=== PATIENT | female | born 2000 | race Caucasian/White ===

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

== ENCOUNTER → 2022-04-12 | Outpatient (CLI) | payer OTHER ==
--- NOTE | 2022-04-12 14:10 | CT ---
EXAMINATION TYPE: CT abdomen pelvis w con DATE OF EXAM: 04/12/2022 HISTORY: Constipation and llq pain CT DLP: 769mGycm Automated Exposure Control for Dose Reduction was Utilized. CONTRAST: CT scan of the abdomen and pelvis is performed without oral but with IV Contrast, patient injected wi th 70 ml mL of Isovue 370. COMPARISON: None. FINDINGS: LUNG BASES: No significant abnormality is appreciated. LIVER/GB: Subcentimeter low dense lesion right hepatic lobe axial image 27 is too small to further ch aracterize but presumed benign. PANCREAS: No significant abnormality is seen. SPLEEN: No significant abnormality is seen. ADRENALS: No significant abnormality is seen. KIDNEYS: Symmetric cortical medullary uptake and excretion without hydronephrosis seen bilaterally. BOWEL: Patient has little intra-abdominal fat making evaluation slightly suboptimal. No suspicious sm all or large bowel dilatation is seen. Low-lying cecum into the right pelvis is noted. [id number] te fecal prominence in the rectosigmoid colon UTERUS/ADNEXA: Anteverted uterus. Symmetric normal-sized ovaries. No free fluid. LYMPH NODES: No greater than 1cm abdominal or pelvic lymph nodes are appreciated. OSSEOUS STRUCTURES: No significant abnormality is seen. OTHER: No significant additional abnormality is seen. IMPRESSION: No bowel obstruction. Possible mild to moderate distal colonic fecal stasis otherwise no suspicious acute finding is seen to account for patient's symptoms of left lower quadrant pain.
== END | disposition home or self-care (01) ==
LOC: RADCTMAIN 10:56
PROVIDERS: ATTEND Family Medicine
DX: R10.32 Left lower quadrant pain (principal); K59.00 Constipation, unspecified
CPT/HCPCS: 74177; Q9967

== ENCOUNTER 2022-12-21 01:08 | Emergency (ER) | payer BC, OTHER ==
[2022-12-21 01:44] LABS: Basophils % (A) 0 %; Eosinophils % (A) 1 %; HCT 39.6 % (34.0-46.0); HGB 13.3 gm/dL (11.4-16.0); Lymphocytes # (A) 1.6 k/uL (1.0-4.8); Lymphocytes % (A) 31 %; MCH 30.8 pg (25.0-35.0); MCHC 33.5 g/dL (31.0-37.0); MCV 92.1 fL (80.0-100.0); Mean Platelet Volume 8.1; Monocytes # (A) 0.4 k/uL (0-1.0); Monocytes % (A) 8 %; Neutrophils # (A) 3.2 k/uL (1.3-7.7); Neutrophils % (A) 59 %; Platelet Count 176 k/uL (150-450); RDW 12.6 % (11.5-15.5); WBC 5.3 k/uL (4.0-11.0)
[2022-12-21 02:10] LABS: ALT 16 U/L (4-34); AST 23 U/L (14-36); African American GFR (CKD) >90 (>60 ml/min/1.73 sqM); Albumin 4.6 g/dL (3.5-5.0); Alkaline Phosphatase 56 U/L (38-126); Anion Gap 11 mmol/L; Blood Urea Nitrogen 10 mg/dL (7-17); Calcium 9.5 mg/dL (8.4-10.2); Carbon Dioxide 21 mmol/L (22-30); Chloride 104 mmol/L (98-107); Glucose 94 mg/dL (74-99); Magnesium 1.9 mg/dL (1.6-2.3); Non-African American GFR(CKD) 89 (>60 ml/min/1.73 sqM); Potassium 3.8 mmol/L (3.5-5.1); Sodium 136 mmol/L (137-145); Total Bilirubin 0.6 mg/dL (0.2-1.3); Total Protein 8.1 g/dL (6.3-8.2)
--- NOTE | 2022-12-21 02:57 | XR ---
EXAMINATION TYPE: XR chest 2V DATE OF EXAM: 12/21/2022 2:54 AM COMPARISON: Chest radiographs from 07/23/2011 TECHNIQUE: XR chest 2V Frontal and lateral views of the chest. CLINICAL INDICATION:Female, 22 years old with history of Syncope; FINDINGS: Lungs/Pleura: There is no evidence of pleural effusion, focal consolidation, or pneumothorax. Pulmonary vascularity: Unremarkable. Heart/mediastinum: Cardiomediastinal silhouette is unremarkable. Musculoskeletal: No acute osseous pathology. IMPRESSION: No acute cardiopulmonary disease/process.
[2022-12-21 03:50] LABS: Appearance,Urine Cloudy (Clear); Bacteria,Urine Rare /hpf; Bilirubin,Urine Negative (Negative); Blood,Urine Moderate (Negative); Color,Urine Light Yellow; Glucose,Urine (UA) Negative (Negative); Hyaline Casts,Urine 1 /lpf (0-2); Ketones,Urine Negative (Negative); Leukocyte Esterase,Urine Large (Negative); Mucus,Urine Occasional /hpf; Nitrite,Urine Negative (Negative); Protein,Urine Negative (Negative); RBC,Urine 3 /hpf (0-5); Specific Gravity,Urine 1.006 (1.001-1.035); Squamous Epithelial Cell,Urine 23 /hpf (0-4); Urobilinogen,Urine <2.0 mg/dL (<2.0); WBC,Urine 45 /hpf (0-5)
[2022-12-21 04:14] VITALS: BP 96/56; PULSE 64; RESP 15
--- NOTE | 2022-12-21 04:17 | ED ---
General Adult HPI - General Chief complaint: Syncope Stated complaint: Syncope, Seizure Time Seen by Provider: 12/21/22 01:24 Source: patient Mode of arrival: ambulatory Limitations: no limitations - History of Present Illness Initial comments: This is a 22-year-old female with a past medical history including anxiety and depression presents emergency department for a syncopal episode. The patient was at her brother who witnessed that the patient did pass out and had shaking- like sensation when she passed out. The patient did wake up and was alert when the patient did awake. The patient stated that she felt her ears ringing and then passed out which is normal for her. The patient reportedly had multiple episodes of syncope since she was a child but his abdomen workup. The patient denied any palpitations or shortness of breath. The patient did state that she has not been 80 or jerking appropriately and did state that this is been the case today. The patient on arrival was within normal limits and denied any other acute pain or complaints. The patient was resting in bed comfortably. - Related Data Home Medications Medication Instructions Recorded Confirmed Cetirizine HCl [Zyrtec] 10 mg PO DAILY 10/16/16 10/18/16 Previous Rx's Medication Instructions Recorded Ofloxacin 0.3% Ophth Soln [Ocuflox 5 drops RIGHT EAR BID #10 ml NS 10/18/16 Ophth Soln] Allergies Allergy/AdvReac Type Severity Reaction Status Date / Time egg Allergy Nausea & Verified 10/18/16 10:19 Vomiting milk Allergy Nausea & Verified 10/18/16 10:19 Vomiting Review of Systems ROS Statement: Those systems with pertinent positive or pertinent negative responses have been documented in the HPI. ROS Other: All systems not noted in ROS Statement are negative. Past Medical History Past Medical History: No Reported History History of Any Multi-Drug Resistant Organisms: None Reported Past Surgical History: Ear Surgery Additional Past Surgical History / Comment(s): Bilateral ear tubes x 2 Past Anesthesia/Blood Transfusion Reactions: No Reported Reaction Past Psychological History: No Psychological Hx Reported Past Alcohol Use History: None Reported Past Drug Use History: None Reported - Past Family History Mother Family Medical History: No Reported History General Exam Limitations: no limitations General appearance: alert, in no apparent distress Head exam: Present: atraumatic, normocephalic, normal inspection Eye exam: Present: normal appearance, PERRL Pupils: Present: normal accommodation ENT exam: Present: normal exam, normal oropharynx, mucous membranes moist Neck exam: Present: normal inspection, full ROM Respiratory exam: Present: normal lung sounds bilaterally Cardiovascular Exam: Present: regular rate, normal rhythm, normal heart sounds GI/Abdominal exam: Present: soft, normal bowel sounds Extremities exam: Present: normal inspection, full ROM Back exam: Present: normal inspection, full ROM Neurological exam: Present: alert, oriented X3, CN II-XII intact Psychiatric exam: Present: normal affect, normal mood Skin exam: Present: warm, dry Course Vital Signs 12/21/22 12/21/22 01:17 04:00 Temperature 98 F Pulse Rate 70 64 Respiratory 18 15 Rate Blood Pressure 102/71 96/56 O2 Sat by Pulse 98 96 Oximetry EKG Findings - EKG Comments: EKG Findings:: An EKG was obtained and was interpreted by myself showing a rate of 56, AK interval 187, QRS duration of 88 and QTC of 413. This EKG showed a sinus bradycardia with no ST segment elevation or depression noted. Medical Decision Making - Medical Decision Making Was pt. sent in by a medical professional or institution (, PA, PARCEL POST ORDER CLERK, urgent care, hospital, or care home...) When possible be specific @ -No Did you speak to anyone other than the patient for history (EMS, parent, family, police, friend...)? What history was obtained from this source @ -Yes, patient's parents were at the bedside and stated the patient has had syncopal episodes since she was a child and they were similar to the episode this evening. They were only concerned this evening because of the possible shaking and seizure-like activity that was reported by the brother. Did you review nursing and triage notes (agree or disagree)? Why? @ -I reviewed and agree with nursing and triage notes Were old charts reviewed (outside hosp., previous admission, EMS record, old EKG, old radiological studies, urgent care reports/EKG's, care home records)? Report findings @ -No old charts were reviewed Differential Diagnosis (chest pain, altered mental status, abdominal pain women, abdominal pain men, vaginal bleeding, weakness, fever, dyspnea, syncope, headache, dizziness, GI bleed, back pain, seizure, CVA, palpatations, mental health)? @ -Vasovagal syncope, electrolyte disturbance, UTI EKG interpreted by me (3pts min.). @ -As above X-rays interpreted by me (1pt min.). @ -Chest x-ray was obtained and was interpreted by myself showing no acute process. CT interpreted by me (1pt min.). @ -None done U/S interpreted by me (1pt. min.). @ -None done What testing was considered but not performed or refused? (CT, X-rays, U/S, labs)? Why? @ -None What meds were considered but not given or refused? Why? @ -None Did you discuss the management of the patient with other professionals (professionals i.e. Dr., PA, PARCEL POST ORDER CLERK, lab, RT, psych nurse, social professionals, animal sticker, teacher, business practices officer, case management specialist)? Give summary @ -No Was smoking cessation discussed for >3mins.? @ -No Was critical care preformed (if so, how long)? @ -No Were there social determinants of health that impacted care today? How? (Homel essness, low income, unemployed, alcoholism, drug addiction, transportation, low edu. Level, literacy, decrease access to med. care, assisted, rehab)? @ -No Was there de-escalation of care discussed even if they declined (Discuss DNR or withdrawal of care, Hospice)? DNR status @ -No What co-morbidities impacted this encounter? (DM, HTN, Smoking, COPD, CAD, Cancer, CVA, ARF, Chemo, Hep., AIDS, mental health diagnosis, sleep apnea, morbid obesity)? @ -Anxiety, depression Was patient admitted / discharged? Hospital course, mention meds given and route, prescriptions, significant lab abnormalities, going to OR and other pertinent info. @ -The patient was seen and evaluated emergency department. On physical exam, the patient was resting in bed without any acute distress. Labs workup was obtained as was a chest x-ray and also within normal limits. The patient had an increase of the CBC as well as leukocyte esterase on UA however there was a significant number of squamous cells therefore was a contaminated specimen and not treated for UTI at this time. The patient likely had a vasovagal syncope secondary to dehydration and lack of food. The patient stated that this was similar to previous episode and was likely not a seizure at this time as the patient was back to within normal limits as soon as she awoke from her syncope. The patient's parents were told to follow-up with her primary care physician for further workup and evaluation. The patient was a nursing of this and all of her questions were answered appropriate. The patient was discharged home in stable condition. Undiagnosed new problem with uncertain prognosis? @ -No Drug Therapy requiring intensive monitoring for toxicity (Heparin, Nitro, Insulin, Cardizem)? @ -No Were any procedures done? @ -No Diagnosis/symptom? @ -Vasovagal syncope Acute, or Chronic, or Acute on Chronic? @ -Acute on chronic Uncomplicated (without systemic symptoms) or Complicated (systemic symptoms)? @ -Uncomplicated Side effects of treatment? @ -No Exacerbation, Progression, or Severe Exacerbation? @ -No Poses a threat to life or bodily function? How? (Chest pain, [place], [place], pneumonia, PE, COPD, DKA, ARF, appy, cholecystitis, CVA, Diverticulitis, Homicidal, Suicidal, threat to staff... and all critical care pts) @ -No - Lab Data Result diagrams: 12/21/22 01:34 12/21/22 01:34 Lab Results 12/21/22 12/21/22 12/21/22 Range/Units 01:34 01:34 01:34 WBC 5.3 (4.0-11.0) k/uL RBC 4.30 (3.80-5.40) m/uL Hgb 13.3 (11.4-16.0) gm/dL Hct 39.6 (34.0-46.0) % MCV 92.1 (80.0-100.0) fL MCH 30.8 (25.0-35.0) pg MCHC 33.5 (31.0-37.0) g/dL RDW 12.6 (11.5-15.5) % Plt Count 176 (150-450) k/uL MPV 8.1 Neutrophils % 59 % Lymphocytes % 31 % Monocytes % 8 % Eosinophils % 1 % Basophils % 0 % Neutrophils # 3.2 (1.3-7.7) k/uL Lymphocytes # 1.6 (1.0-4.8) k/uL Monocytes # 0.4 (0-1.0) k/uL Eosinophils # 0.0 (0-0.7) k/uL Basophils # 0.0 (0-0.2) k/uL Sodium 136 L (137-145) mmol/L Potassium 3.8 (3.5-5.1) mmol/L Chloride 104 (98-107) mmol/L Carbon Dioxide 21 L (22-30) mmol/L Anion Gap 11 mmol/L BUN 10 (7-17) mg/dL Creatinine 0.93 (0.52-1.04) mg/dL Est GFR (CKD-EPI)AfAm >90 (>60 ml/min/1.73 sqM) Est GFR (CKD-EPI)NonAf 89 (>60 ml/min/1.73 sqM) Glucose 94 (74-99) mg/dL Calcium 9.5 (8.4-10.2) mg/dL Magnesium 1.9 (1.6-2.3) mg/dL Total Bilirubin 0.6 (0.2-1.3) mg/dL AST 23 (14-36) U/L ALT 16 (4-34) U/L Alkaline Phosphatase 56 (38-126) U/L Troponin I <0.012 (0.000-0.034) ng/mL Total Protein 8.1 (6.3-8.2) g/dL Albumin 4.6 (3.5-5.0) g/dL Urine Color Urine Appearance (Clear) Urine pH (5.0-8.0) Ur Specific Coats (1.001-1.035) Urine Protein (Negative) Urine Glucose (UA) (Negative) Urine Ketones (Negative) Urine Blood (Negative) Urine Nitrite (Negative) Urine Bilirubin (Negative) Urine Urobilinogen (<2.0) mg/dL Ur Leukocyte Esterase (Negative) Urine RBC (0-5) /hpf Urine WBC (0-5) /hpf Ur Squamous Epith Cells (0-4) /hpf Urine Bacteria (None) /hpf Hyaline Casts (0-2) /lpf Urine Mucus (None) /hpf Urine HCG, Qual (Not Detectd) 12/21/22 12/21/22 Range/Units 03:40 03:40 WBC (4.0-11.0) k/uL RBC (3.80-5.40) m/uL Hgb (11.4-16.0) gm/dL Hct (34.0-46.0) % MCV (80.0-100.0) fL MCH (25.0-35.0) pg MCHC (31.0-37.0) g/dL RDW (11.5-15.5) % Plt Count (150-450) k/uL MPV Neutrophils % % Lymphocytes % % Monocytes % % Eosinophils % % Basophils % % Neutrophils # (1.3-7.7) k/uL Lymphocytes # (1.0-4.8) k/uL Monocytes # (0-1.0) k/uL Eosinophils # (0-0.7) k/uL Basophils # (0-0.2) k/uL Sodium (137-145) mmol/L Potassium (3.5-5.1) mmol/L Chloride (98-107) mmol/L Carbon Dioxide (22-30) mmol/L Anion Gap mmol/L BUN (7-17) mg/dL Creatinine (0.52-1.04) mg/dL Est GFR (CKD-EPI)AfAm (>60 ml/min/1.73 sqM) Est GFR (CKD-EPI)NonAf (>60 ml/min/1.73 sqM) Glucose (74-99) mg/dL Calcium (8.4-10.2) mg/dL Magnesium (1.6-2.3) mg/dL Total Bilirubin (0.2-1.3) mg/dL AST (14-36) U/L ALT (4-34) U/L Alkaline Phosphatase (38-126) U/L Troponin I (0.000-0.034) ng/mL Total Protein (6.3-8.2) g/dL Albumin (3.5-5.0) g/dL Urine Color Light Yellow Urine Appearance Cloudy H (Clear) Urine pH 6.0 (5.0-8.0) Ur Specific Coats 1.006 (1.001-1.035) Urine Protein Negative (Negative) Urine Glucose (UA) Negative (Negative) Urine Ketones Negative (Negative) Urine Blood Moderate H (Negative) Urine Nitrite Negative (Negative) Urine Bilirubin Negative (Negative) Urine Urobilinogen <2.0 (<2.0) mg/dL Ur Leukocyte Esterase Large H (Negative) Urine RBC 3 (0-5) /hpf Urine WBC 45 H (0-5) /hpf Ur Squamous Epith Cells 23 H (0-4) /hpf Urine Bacteria Rare H (None) /hpf Hyaline Casts 1 (0-2) /lpf Urine Mucus Occasional H (None) /hpf Urine HCG, Qual Not Detected (Not Detectd) Disposition Clinical Impression: Vasovagal syncope Disposition: HOME SELF-CARE Condition: Stable Instructions (If sedation given, give patient instructions): Syncope (DC) Is patient prescribed a controlled substance at d/c from ED?: No Referrals: Jayson Freed DO [Primary Care Provider] - 1-2 days Time of Disposition: 04:00
[2022-12-21 04:25] VITALS: TEMP 98.3
== END 2022-12-21 04:25 | disposition home or self-care (01) ==
LOC: EC 01:08
DX: R55 Syncope and collapse (principal); Z91.011 Allergy to milk products; Z91.012 Allergy to eggs
CPT/HCPCS: 36415; 71046; 80053; 81001; 81025; 83735; 84484; 85025; 93005; 99284

== ENCOUNTER 2023-08-06 20:58 | Inpatient (IN) | payer BC ==
--- NOTE | 2023-08-06 21:20 | ED ---
Psych HPI - General Source: patient, family, RN notes reviewed Mode of arrival: ambulatory Limitations: no limitations <Jayson Bill - Last Filed: 08/06/23 23:30> <Cheo Neely - Last Filed: 08/07/23 11:52> - General Chief Complaint: Psychiatric Symptoms Stated Complaint: mental health Time Seen by Provider: 08/06/23 21:00 - History of Present Illness Initial Comments: 23-year-old female presents emergency department with chief complaint of depression, suicide ideation. Patient states that she has been on Cymbalta but states she is not taking consistently. She has been hospitalized at [facility] in the past. She states that she does occasionally abuse Xanax, uses marijuana states that she used alcohol 1 week ago and has used shrooms in the past. Patient has self-destructive behavior she states she has plans to harm herself. (Jayson Bill) - Related Data Home Medications Medication Instructions Recorded Confirmed ALPRAZolam [Xanax] 0.5 mg PO DAILY PRN 08/07/23 08/07/23 DULoxetine HCL [Cymbalta] 30 mg PO DAILY 08/07/23 08/07/23 Allergies Allergy/AdvReac Type Severity Reaction Status Date / Time egg Allergy Nausea & Verified 08/07/23 10:59 Vomiting milk Allergy Nausea & Verified 08/07/23 10:59 Vomiting Review of Systems ROS Other: All systems not noted in ROS Statement are negative. <Jayson Bill - Last Filed: 08/06/23 23:30> ROS Other: All systems not noted in ROS Statement are negative. <Cheo Neely - Last Filed: 08/07/23 11:52> ROS Statement: Those systems with pertinent positive or pertinent negative responses have been documented in the HPI. Past Medical History Past Medical History: No Reported History History of Any Multi-Drug Resistant Organisms: None Reported Past Surgical History: Ear Surgery Additional Past Surgical History / Comment(s): Bilateral ear tubes x 2 Past Anesthesia/Blood Transfusion Reactions: No Reported Reaction Past Psychological History: No Psychological Hx Reported Smoking Status: Current every day smoker, Vaper Past Alcohol Use History: Rare Past Drug Use History: Marijuana - Past Family History Mother Family Medical History: No Reported History <Jayson Bill - Last Filed: 08/06/23 23:30> General Exam Limitations: no limitations General appearance: alert, in no apparent distress Head exam: Present: atraumatic, normocephalic, normal inspection Neck exam: Present: normal inspection. Absent: tenderness, meningismus, lymphadenopathy Respiratory exam: Present: normal lung sounds bilaterally. Absent: respiratory distress, wheezes, rales, rhonchi, stridor Cardiovascular Exam: Present: regular rate, normal rhythm, normal heart sounds. Absent: systolic murmur, diastolic murmur, rubs, gallop, clicks Psychiatric exam: Present: depressed Skin exam: Present: warm, dry, intact, normal color. Absent: rash <Jayson Bill - Last Filed: 08/06/23 23:30> Course Vital Signs 08/06/23 08/07/23 21:00 05:50 Temperature 98 F Pulse Rate 72 Respiratory 18 14 Rate Blood Pressure 146/88 O2 Sat by Pulse 99 Oximetry Medical Decision Making <Jayson Bill - Last Filed: 08/06/23 23:30> - Lab Data Result diagrams: 08/07/23 10:07 08/07/23 10:07 <Cheo Neely - Last Filed: 08/07/23 11:52> - Medical Decision Making Was pt. sent in by a medical professional or institution (, PA, TUFTING CREELER, urgent care, hospital, or jail...) When possible be specific @ -No Did you speak to anyone other than the patient for history (EMS, parent, family, police, friend...)? What history was obtained from this source @ -No Did you review nursing and triage notes (agree or disagree)? Why? @ -I reviewed and agree with nursing and triage notes Were old charts reviewed (outside hosp., previous admission, EMS record, old EKG, old radiological studies, urgent care reports/EKG's, jail records)? Report findings @ -No old charts were reviewed Differential Diagnosis (chest pain, altered mental status, abdominal pain women, abdominal pain men, vaginal bleeding, weakness, fever, dyspnea, syncope, headache, dizziness, GI bleed, back pain, seizure, CVA, palpatations, mental health, musculoskeletal)? @ -Differential Mental Health Depression, anxiety, bipolar, psychosis, schizophrenia, borderline personality, situational depression, adjustment disorder, behavioral disorder, brain tumor, malingering, substance abuse, encephalopathy, medication reaction, dementia, hypothyroidism, degenerative neurologic disorder, lupus.... This is not meant to be all-inclusive list with EKG interpreted by me (3pts min.). @ -As above X-rays interpreted by me (1pt min.). @ -None done CT interpreted by me (1pt min.). @ -None done U/S interpreted by me (1pt. min.). @ -None done What testing was considered but not performed or refused? (CT, X-rays, U/S, labs)? Why? @ -None What meds were considered but not given or refused? Why? @ -None Did you discuss the management of the patient with other professionals (professionals i.e. Dr., PA, TUFTING CREELER, lab, RT, psych nurse, social media strategist, civil preparedness officer, teacher, police officer crime prevention, immigration case manager)? Give summary @ -EPS for psychiatric evaluation Was smoking cessation discussed for >3mins.? @ -No Was critical care preformed (if so, how long)? @ -No Were there social determinants of health that impacted care today? How? (Homelessness, low income, unemployed, alcoholism, drug addiction, transportation, low edu. Level, literacy, decrease access to med. care, snf, rehab)? @ -No Was there de-escalation of care discussed even if they declined (Discuss DNR or withdrawal of care, Hospice)? DNR status @ -No What co-morbidities impacted this encounter? (DM, HTN, Smoking, COPD, CAD, Cancer, CVA, ARF, Chemo, Hep., AIDS, mental health diagnosis, sleep apnea, morbid obesity)? @ -Depression, anxiety Was patient admitted / discharged? Hospital course, mention meds given and route, prescriptions, significant lab abnormalities, going to OR and other pertinent info. @ -Patient is pending psychiatric evaluation Undiagnosed new problem with uncertain prognosis? @ -No Drug Therapy requiring intensive monitoring for toxicity (Heparin, Nitro, Insulin, Cardizem)? @ -No Were any procedures done? @ -No (Jayson Bill) Patient medically cleared by previous medical provider. I was notified by EPS Ash that patient requires inpatient psychiatry after discussion with psychiatrist. Patient will be admitted to inpatient psychiatry in stable condition. (Cheo Neely) - Lab Data Lab Results 08/06/23 08/06/23 08/06/23 Range/Units 22:30 22:47 22:47 WBC (3.8-10.6) k/uL RBC (3.80-5.40) m/uL Hgb (11.4-16.0) gm/dL Hct (34.0-46.0) % MCV (80.0-100.0) fL MCH (25.0-35.0) pg MCHC (31.0-37.0) g/dL RDW (11.5-15.5) % Plt Count (150-450) k/uL MPV Neutrophils % % Lymphocytes % % Monocytes % % Eosinophils % % Basophils % % Neutrophils # (1.3-7.7) k/uL Lymphocytes # (1.0-4.8) k/uL Monocytes # (0-1.0) k/uL Eosinophils # (0-0.7) k/uL Basophils # (0-0.2) k/uL Sodium (137-145) mmol/L Potassium (3.5-5.1) mmol/L Chloride (98-107) mmol/L Carbon Dioxide (22-30) mmol/L Anion Gap mmol/L BUN (7-17) mg/dL Creatinine (0.52-1.04) mg/dL Est GFR (CKD-EPI)AfAm (>60 ml/min/1.73 sqM) Est GFR (CKD-EPI)NonAf (>60 ml/min/1.73 sqM) Glucose (74-99) mg/dL Calcium (8.4-10.2) mg/dL Total Bilirubin (0.2-1.3) mg/dL AST (14-36) U/L ALT (4-34) U/L Alkaline Phosphatase (38-126) U/L Total Protein (6.3-8.2) g/dL Albumin (3.5-5.0) g/dL Urine HCG, Qual Not Detected (Not Detectd) Urine Opiates Screen Not Detected (NotDetected) Ur Oxycodone Screen Not Detected (NotDetected) Urine Methadone Screen Not Detected (NotDetected) Ur Barbiturates Screen Not Detected (NotDetected) U Tricyclic Antidepress Not Detected (NotDetected) Ur Phencyclidine Scrn Not Detected (NotDetected) Ur Amphetamines Screen Not Detected (NotDetected) U Methamphetamines Scrn Not Detected (NotDetected) U Benzodiazepines Scrn Not Detected (NotDetected) Urine Cocaine Screen Not Detected (NotDetected) U Marijuana (THC) Screen Detected H (NotDetected) SARS-CoV-2 (PCR) Not Detected (Not Detectd) 08/07/23 08/07/23 Range/Units 10:07 10:07 WBC 4.3 (3.8-10.6) k/uL RBC 4.49 (3.80-5.40) m/uL Hgb 14.1 (11.4-16.0) gm/dL Hct 42.3 (34.0-46.0) % MCV 94.3 (80.0-100.0) fL MCH 31.5 (25.0-35.0) pg MCHC 33.4 (31.0-37.0) g/dL RDW 12.5 (11.5-15.5) % Plt Count 201 (150-450) k/uL MPV 8.3 Neutrophils % 67 % Lymphocytes % 22 % Monocytes % 8 % Eosinophils % 1 % Basophils % 0 % Neutrophils # 2.9 (1.3-7.7) k/uL Lymphocytes # 1.0 (1.0-4.8) k/uL Monocytes # 0.4 (0-1.0) k/uL Eosinophils # 0.0 (0-0.7) k/uL Basophils # 0.0 (0-0.2) k/uL Sodium 140 (137-145) mmol/L Potassium 3.4 L (3.5-5.1) mmol/L Chloride 105 (98-107) mmol/L Carbon Dioxide 19 L (22-30) mmol/L Anion Gap 16 mmol/L BUN 10 (7-17) mg/dL Creatinine 0.72 (0.52-1.04) mg/dL Est GFR (CKD-EPI)AfAm >90 (>60 ml/min/1.73 sqM) Est GFR (CKD-EPI)NonAf >90 (>60 ml/min/1.73 sqM) Glucose 85 (74-99) mg/dL Calcium 9.6 (8.4-10.2) mg/dL Total Bilirubin 1.2 (0.2-1.3) mg/dL AST 20 (14-36) U/L ALT 11 (4-34) U/L Alkaline Phosphatase 64 (38-126) U/L Total Protein 7.6 (6.3-8.2) g/dL Albumin 4.8 (3.5-5.0) g/dL Urine HCG, Qual (Not Detectd) Urine Opiates Screen (NotDetected) Ur Oxycodone Screen (NotDetected) Urine Methadone Screen (NotDetected) Ur Barbiturates Screen (NotDetected) U Tricyclic Antidepress (NotDetected) Ur Phencyclidine Scrn (NotDetected) Ur Amphetamines Screen (NotDetected) U Methamphetamines Scrn (NotDetected) U Benzodiazepines Scrn (NotDetected) Urine Cocaine Screen (NotDetected) U Marijuana (THC) Screen (NotDetected) SARS-CoV-2 (PCR) (Not Detectd) Disposition <Jayson Bill - Last Filed: 08/06/23 23:30> <Cheo Neely - Last Filed: 08/07/23 11:52> Clinical Impression: Depression Disposition: TRANSFER TO PSYCH HOSP/UNIT Condition: Stable Referrals: Jayson Freed DO [Primary Care Provider] - 1-2 days
[2023-08-06 23:08] LABS: Amphetamine Screen,Urine Not Detected (NotDetected); Barbiturate Screen,Urine Not Detected (NotDetected); Benzodiazepines Screen,Urine Not Detected (NotDetected); Cocaine Screen,Urine Not Detected (NotDetected); Methadone Screen, Urine Not Detected (NotDetected); Opiate Screen,Urine Not Detected (NotDetected); Oxycodone Screen, Urine Not Detected (NotDetected); Phencyclidine Screen,Urine Not Detected (NotDetected); Tricyclic Antidepressant,Urine Not Detected (NotDetected); Urn Cannabinoid Scrn Detected (NotDetected)
[2023-08-07] MEDS: LORazepam 1 MG TAB PO STA ×3 (00:40→12:22)
[2023-08-07] MEDS: NICOTINE 14MG/24HR PATCH TRANSDERM STA ×2 (01:28→12:22)
[2023-08-07] MEDS: LORazepam 0.5 MG TAB PO STA (10:07)
[2023-08-07 10:18] LABS: Basophils % (A) 0 %; Eosinophils % (A) 1 %; HCT 42.3 % (34.0-46.0); HGB 14.1 gm/dL (11.4-16.0); Lymphocytes % (A) 22 %; MCH 31.5 pg (25.0-35.0); MCHC 33.4 g/dL (31.0-37.0); MCV 94.3 fL (80.0-100.0); Mean Platelet Volume 8.3; Monocytes # (A) 0.4 k/uL (0-1.0); Monocytes % (A) 8 %; Neutrophils # (A) 2.9 k/uL (1.3-7.7); Neutrophils % (A) 67 %; Platelet Count 201 k/uL (150-450); RBC 4.49 m/uL (3.80-5.40); RDW 12.5 % (11.5-15.5); WBC 4.3 k/uL (3.8-10.6)
[2023-08-07 10:30] LABS: ALT 11 U/L (4-34); AST 20 U/L (14-36); African American GFR (CKD) >90 (>60 ml/min/1.73 sqM); Albumin 4.8 g/dL (3.5-5.0); Alkaline Phosphatase 64 U/L (38-126); Anion Gap 16 mmol/L; Blood Urea Nitrogen 10 mg/dL (7-17); Calcium 9.6 mg/dL (8.4-10.2); Carbon Dioxide 19 mmol/L (22-30); Chloride 105 mmol/L (98-107); Glucose 85 mg/dL (74-99); Non-African American GFR(CKD) >90 (>60 ml/min/1.73 sqM); Potassium 3.4 mmol/L (3.5-5.1); Sodium 140 mmol/L (137-145); Total Bilirubin 1.2 mg/dL (0.2-1.3); Total Protein 7.6 g/dL (6.3-8.2)
[2023-08-07] MEDS ORDERED: OLANZapine 10 MG VIAL IM PRN (15:26)
[2023-08-07] MEDS ORDERED: IBUPROFEN 600 MG TAB PO PRN (15:26)
[2023-08-07] MEDS: NICOTINE 14MG/24HR PATCH TRANSDERM SCH (16:44)
[2023-08-07] MEDS: LORazepam 1 MG TAB PO PRN (18:42)
[2023-08-07] MEDS: traZODone HCL 50 MG TAB PO PRN (21:51)
[2023-08-08] MEDS: DULoxetine HCL 30 MG CAPSULE.DR PO SCH (08:21)
[2023-08-08 09:01] LABS: Chol/HDL Ratio 3.55 Ratio; LDL Cholesterol,Calculated 142.8 mg/dL (0.0-131.0); VLDL Calculation 14.54 mg/dL (5.00-40.00)
[2023-08-08] MEDS: lamoTRIgine 25 MG TAB PO SCH (12:04)
--- NOTE | 2023-08-08 12:45 | P.HP ---
Psychiatric H&P - . H&P Date: 08/08/23 History & Physical: Allergies Allergy/AdvReac Type Severity Reaction Status Date / Time No Known Allergies Allergy Verified 08/07/23 18:04 Vital Signs Temp 97.8 F 08/07/23 17:26 Pulse 130 H 08/07/23 17:26 Resp 18 08/07/23 17:26 BP 125/84 08/07/23 17:26 Pulse Ox 99 08/07/23 15:26 FiO2 Intake & Output 08/07/23 08/08/23 08/08/23 18:59 06:59 18:59 Weight 43.5 kg Laboratory Last Values WBC 4.3 k/uL (3.8-10.6) 08/07/23 10:07 RBC 4.49 m/uL (3.80-5.40) 08/07/23 10:07 Hgb 14.1 gm/dL (11.4-16.0) 08/07/23 10:07 Hct 42.3 % (34.0-46.0) 08/07/23 10:07 MCV 94.3 fL (80.0-100.0) 08/07/23 10:07 MCH 31.5 pg (25.0-35.0) 08/07/23 10:07 MCHC 33.4 g/dL (31.0-37.0) 08/07/23 10:07 RDW 12.5 % (11.5-15.5) 08/07/23 10:07 Plt Count 201 k/uL (150-450) 08/07/23 10:07 MPV 8.3 08/07/23 10:07 Neutrophils % 67 % 08/07/23 10:07 Lymphocytes % 22 % 08/07/23 10:07 Monocytes % 8 % 08/07/23 10:07 Eosinophils % 1 % 08/07/23 10:07 Basophils % 0 % 08/07/23 10:07 Neutrophils # 2.9 k/uL (1.3-7.7) 08/07/23 10:07 Lymphocytes # 1.0 k/uL (1.0-4.8) 08/07/23 10:07 Monocytes # 0.4 k/uL (0-1.0) 08/07/23 10:07 Eosinophils # 0.0 k/uL (0-0.7) 08/07/23 10:07 Basophils # 0.0 k/uL (0-0.2) 08/07/23 10:07 Sodium 140 mmol/L (137-145) 08/07/23 10:07 Potassium 3.4 mmol/L (3.5-5.1) L 08/07/23 10:07 Chloride 105 mmol/L (98-107) 08/07/23 10:07 Carbon Dioxide 19 mmol/L (22-30) L 08/07/23 10:07 Anion Gap 16 mmol/L 08/07/23 10:07 BUN 10 mg/dL (7-17) 08/07/23 10:07 Creatinine 0.72 mg/dL (0.52-1.04) 08/07/23 10:07 Est GFR (CKD-EPI)AfAm >90 (>60 ml/min/1.73 sqM) 08/07/23 10:07 Est GFR (CKD-EPI)NonAf >90 (>60 ml/min/1.73 sqM) 08/07/23 10:07 Glucose 85 mg/dL (74-99) 08/07/23 10:07 Calcium 9.6 mg/dL (8.4-10.2) 08/07/23 10:07 Total Bilirubin 1.2 mg/dL (0.2-1.3) 08/07/23 10:07 AST 20 U/L (14-36) 08/07/23 10:07 ALT 11 U/L (4-34) 08/07/23 10:07 Alkaline Phosphatase 64 U/L (38-126) 08/07/23 10:07 Total Protein 7.6 g/dL (6.3-8.2) 08/07/23 10:07 Albumin 4.8 g/dL (3.5-5.0) 08/07/23 10:07 TSH 1.150 mIU/L (0.465-4.680) 08/07/23 10:07 Urine HCG, Qual Not Detected (Not Detectd) 08/06/23 22:47 Urine Opiates Screen Not Detected (NotDetected) 08/06/23 22:47 Ur Oxycodone Screen Not Detected (NotDetected) 08/06/23 22:47 Urine Methadone Screen Not Detected (NotDetected) 08/06/23 22:47 Ur Barbiturates Screen Not Detected (NotDetected) 08/06/23 22:47 U Tricyclic Antidepress Not Detected (NotDetected) 08/06/23 22:47 Ur Phencyclidine Scrn Not Detected (NotDetected) 08/06/23 22:47 Ur Amphetamines Screen Not Detected (NotDetected) 08/06/23 22:47 U Methamphetamines Scrn Not Detected (NotDetected) 08/06/23 22:47 U Benzodiazepines Scrn Not Detected (NotDetected) 08/06/23 22:47 Urine Cocaine Screen Not Detected (NotDetected) 08/06/23 22:47 U Marijuana (THC) Screen Detected (NotDetected) H 08/06/23 22:47 SARS-CoV-2 (PCR) Not Detected (Not Detectd) 08/06/23 22:30 08/08/23 08:54 IDENTIFYING DATA: Patient is a 23-year-old female. Lives in a house with her parents and siblings. Works at [employer], casually. HPI: Patient presented to the hospital on 08/06. As per EPS note, "presenting with SI w plan to OD,cut wrists. Cl shawn in via Mother due to recent manic episode and currently experiencing severe depression. Cl's symptom report is relative to Bi-polar type I. Cl reports depression/anxiety last 12 months and hx of manic symptoms previously, and at noted points during the last 12 months. Cl reports depression last 14 days and feels like "life is derailing" Cl acknowledges planning out suicide. " I don't want to do these things in my heart but my head keeps telling me to." Cl presents tearful, overwhelmed, anxious, racing thoughts, hypersexuality, excess spending, euphoric mood initially, mood lability, panic attacks, flight of ideas, intense anger, and endorsing aud/vis myesha along w paranoia. Cl states " I feel like everyone is talking about me or watching me. I thought I head people outside of my house laughing at me and crying" Cl is fearful of what is happening and emotionally distraught. Cl reports not feeling supported by their family, and minimized. Cl reports using alcohol to cope and that it has become more frequent as well as THC." Upon todays assessment, patient endorses severe paranoia, thinking every single person hates her, is out to get her, and her family, and that everyone wants to see her kill her self. She has spent over 10k recently, she states that she has been on the internet trying to find a boyfriend. States she's "kind of hung up on a boy, and it's stupid". Patient endorses racing thoughts. She states her mood right now is just "kind of numb". States her therapist stated that she should come in and get help. She states she has no appetite, and her sleep is not good. Patient denies any suicidal or homicidal ideations intent or plan, here, however, at home, she was thinking of taking pills and slitting her wrists. At this time patient endorses auditory and visual hallucinations. She thought the whole town was on fire, and she hears random laughing and crying outside. She is endorsing paranoia, thinking everyone on the unit hates her, and "obviously everyone on the outside". Patient admits to using marijuana, in oil form. Patient admits to abusing xanax in the past. Patient vapes nicotine. Has done mushrooms once. PAST PSYCHIATRIC HISTORY: Patient states that she sees Mahsa at [facility], and is prescribed Zyprexa, Cymbalta and Lexapro, but does not take them. She states she was seeing Logan for medications, but she was not taking her medications, so she stopped seeing him. Has been inpatient once prior at [facility], in 07/25. Denies prior suicide attempt PMH:As per ER note ALLERGIES: as per EMR CHEMICAL DEPENDENCY HISTORY: as per HPI FAMILY PSYCHIATRIC/SUBSTANCE USE HISTORY: mother, and brothers have "what I diagnose them as" SOCIAL HISTORY: Patient was born and raised in [place], and raised in [place]. High school graduate. Some college. Lives with parents and siblings in a house, works at [employer], casually. Denies legal problems. MENTAL STATUS EXAM: General Appearance: Patient appears to be stated age, is alert, directable, and attempts to cooperate. Patient appears to have poor hygiene and grooming. Dirty, greasy hair, disheveled appearance. Has her own clothes on. Wearing glasses. Behavior: Patient is seated without any agitated behavior. Curled up in a ball on the chair. Speech: Patient's speech is fluent and nonpressured. Mood/Affect: Patient reports their mood is depressed and anxious, affect is congruent and constricted. Suicidality/Homicidality: Patient denies having any homicidal ideation intent or plan. Denies any suicidal ideations intent or plan Perceptions: Patient endorses visual and auditory hallucinations Though content/process: There is evidence of any delusional thought content and thought process paranoid. Memory and concentration: AOX3, grossly intact for the purposes of this session. Can spell "WORLD" backwards Judgment and insight: poor STRENGTHS/WEAKNESSES: strength is that patient is resilient. Weakness is that patient has poor judgment and is impulsive INTELLECT: average IMPRESSIONS: bipolar disorder, with psychotic features nicotine dependance cannabis use disorder, severe dependance benzodiazepine abuse PLAN: -Patient is admitted under voluntary status to MHU for stabilization of psychiatric symptoms and safety. Patient has signed adult voluntary form and medication consent and is placed in patient's chart. -Medications : Will start patient on Seroquel 50mg qhs for mood stabilization/psychosis, Lamictal 25mg bid mood stabilization/depression. Patient informed to watch for a rash, and to let nursing staff or radio script writer know if she notices this. Cymbalta 30mg daily for mood/anxiety -Ativan and Haldol PRN for agitation/aggression -Patient was counselled on substance abuse and desired to cut back on use -Patient was informed of the risks, benefits and side effects of the medication and patient verbally consented to taking the medications. -Internal Medicine consult to perform medical evaluation and physical. -NRT - nicotine patch -SW on board for discharge planning. Encourage patient to participate in groups to work on coping skills. 08/08/23 11:34 08/08/23 12:41
[2023-08-08] MEDS: haloperidoL 5 MG TAB PO PRN (18:35)
--- NOTE | 2023-08-08 18:59 | P.HPIM ---
History of Present Illness H&P Date: 08/08/23 Chief Complaint: Medical evaluation 23-year-old woman, underweight, with history of suicidal ideation and depression presented for suicidal ideation and mental health evaluation. Patient has no complaints at this time. She denies any medical history at this time. Gen: In NAD, non-toxic HEENT: normocephalic, atraumatic, hearing acuity is intant, mucous membranes moist CVS: perfusing all extremities well, no pitting edema, Respiratory: symmetric chest expansion, no accessory muscle use, GI: soft, NTTP, ND, : no suprapubic tenderness, no CVA tenderness MSK/Derm: no rashes, cyanosis Neuro: CN II-XII intact, no motor weakness, Psych: cooperative, euthymic mood, judgment and insight is intact Assessment/plan: Underweight Recommend high-protein diet Outpatient follow-up Suicidal ideation/depression Care per primary team Past Medical History Past Medical History: No Reported History History of Any Multi-Drug Resistant Organisms: None Reported Past Surgical History: Ear Surgery Additional Past Surgical History / Comment(s): Bilateral ear tubes x 2 Past Anesthesia/Blood Transfusion Reactions: No Reported Reaction Past Psychological History: No Psychological Hx Reported Smoking Status: Current every day smoker, Vaper Past Alcohol Use History: Rare Past Drug Use History: Marijuana - Past Family History Mother Family Medical History: No Reported History Medications and Allergies Home Medications Medication Instructions Recorded Confirmed Type ALPRAZolam [Xanax] 0.5 mg PO DAILY PRN 08/07/23 08/07/23 History DULoxetine HCL [Cymbalta] 30 mg PO DAILY 08/07/23 08/07/23 History Allergies Allergy/AdvReac Type Severity Reaction Status Date / Time No Known Allergies Allergy Verified 08/07/23 18:04 Physical Exam Osteopathic Statement: *. No significant issues noted on an osteopathic structural exam other than those noted in the History and Physical/Consult. Vitals: Intake and Output 08/08/23 08/08/23 08/08/23 06:59 14:59 22:59 Other: Weight 43.5 kg Results CBC & Chem 7: 08/07/23 10:07 08/07/23 10:07 Labs: Abnormal Lab Results - Last 24 Hours (Table) 08/07/23 Range/Units 10:07 Cholesterol 219.00 H (0.00-200.00) mg/dL LDL Cholesterol, Calc 142.8 H (0.0-131.0) mg/dL HDL Cholesterol 61.70 H (40.00-60.00) mg/dL Thrombosis Risk Factor Assmnt - Choose All That Apply Any of the Below Risk Factors Present?: No Other Risk Factors: No Other congenital or acquired thrombophilia - If yes, enter type in comment: No Thrombosis Risk Factor Assessment Level: Very Low Risk
[2023-08-08] MEDS: QUEtiapine 50 MG TAB PO SCH (21:09)
--- NOTE | 2023-08-09 10:58 | P.PN ---
Progress Note - Text Progress Note Date: 08/09/23 Interval history: Patient was seen laying in her bed today and was directable and agreeable to speak with marketing writer. Patient claims that she found it difficult to sleep on the last night, states that she forgot to take off her nicotine patch and was having intense dreams. Flight Teacher counseled her on making sure that the patch is removed prior to sleep. Claims that the Seroquel did help a little bit, she was requesting to have it increased. States that she is still feeling very anxious, on edge. States that she is still feeling depressed and having suicidal thoughts, also was endorsing paranoia. At this time patient denies any homicidal ideations intent or plan. Denies any Auditory or visual hallucinations. Patient denies any side effects from the medications and has been compliant with meds. Mental status exam: General Appearance: Patient appears to be thin, disheveled appearance, stated age is alert, directable, and cooperative. Behavior: No agitated behavior. Patient is calm and directable times to cooperate Speech: Patient's speech is fluent and nonpressured. Mood/Affect: Mood is improving mildly, affect is congruent and constricted. Suicidality/Homicidality: Patient denies having any suicidal or homicidal ideation intent or plan. Perceptions: Patient denies any auditory or visual hallucinations. Though content/process: There is no evidence of any delusional thought content and thought process is linear and goal-directed. Focused on her medications Memory and concentration: AOX3, grossly intact for the purposes of this session Judgment and insight: improving mildly Assessment/Plan: Continue with current diagnosis. Patient continues to meet criteria for inpatient psychiatric admission for symptom stabilization and safety. Patient will be maintained on current psychotropic medication regimen, with the exception of increasing Seroquel to 100 mg nightly for mood stabilization/psychosis, will add on Nicorette gum as needed, increase Cymbalta to 30 mg twice daily for mood/anxiety. Patient continues to deny a rash. Monitor for medication compliance and for any psychotropic medication side effects. Will continue to monitor ongoing response to treatment. Encouraged participation in milieu.
[2023-08-09] MEDS: diphenhydrAMINE 50 MG CAP PO STA (17:41)
[2023-08-09] MEDS: QUEtiapine 100 MG TAB PO SCH (19:48)
[2023-08-09] MEDS: DULoxetine HCL 30 MG CAPSULE.DR PO SCH (19:49)
[2023-08-10] MEDS: NICOTINE GUM (POLACRILEX) 2 MG GUM BUCCAL PRN (10:44)
--- NOTE | 2023-08-10 11:16 | P.PN ---
Progress Note - Text Progress Note Date: 08/10/23 Interval history: Patient was seen laying in her bed today and was directable and agreeable to speak with designer/writer. She claimed that she had a bit of difficulty sleeping last night, states that she did have a "intense dream". She was agreeable to have her Seroquel increased. She states that she is still not feeling very well, continues to have severe anxiety, mainly keeping herself on the unit. Continues to endorse depression and mood instability and irritability. She did appear to be calmer today, not tearful. States that the nicotine gum has been helping. Continues to endorse some paranoia about others and is self-conscious about going to groups and speaking. At this time patient denies any homicidal ideations intent or plan. Denies any Auditory or visual hallucinations. Patient denies any side effects from the medications and has been compliant with meds. Mental status exam: General Appearance: Patient appears to be thin, disheveled appearance, stated age is alert, directable, and cooperative. Improving mildly Behavior: No agitated behavior. Patient is calm and directable times to cooperate Speech: Patient's speech is fluent and nonpressured. [place] Mood/Affect: Mood is improving mildly, affect is congruent and constricted. Not tearful today Suicidality/Homicidality: Patient denies having any suicidal or homicidal ideation intent or plan. Perceptions: Patient denies any auditory or visual hallucinations. Though content/process: There is no evidence of any delusional thought content and thought process is linear and goal-directed. Focused on her medications and her symptoms Memory and concentration: AOX3, grossly intact for the purposes of this session Judgment and insight: Poor, improving mildly Assessment/Plan: Continue with current diagnosis. Patient continues to meet criteria for inpatient psychiatric admission for symptom stabilization and safety. Patient will be maintained on current psychotropic medication regimen, with the exception of increasing Seroquel to 150 mg nightly for mood stabilization/psychosis, will add on Nicorette gum as needed, increase Cymbalta to 30 mg + 60 mg for mood/anxiety. Discontinued Lamictal yesterday due to suspected rash, patient states that this is improved since yesterday and she is not bothered by it and it is near her chest. She did not feel comfortable showing designer/writer chest. He did not feel comfortable showing designer/writer. He claims that she will continue to monitor this and alert nurse if this does occur. she was agreeable to try lithium 300 mg daily for mood stabilization. Monitor for medication compliance and for any psychotropic medication side effects. Will continue to Or get worse. Pnitor ongoing response to treatment. Encouraged participation in milieu.
[2023-08-10] MEDS: LITHIUM CARBONATE 300 MG CAP PO SCH (11:44)
[2023-08-10] MEDS: MAG HYDROX/AL HYDROX/SIMETH 355 ML BOTTLE PO PRN (18:46)
[2023-08-10] MEDS: QUEtiapine 50 MG TAB PO SCH (20:31)
[2023-08-10] MEDS: DULoxetine HCL 30 MG CAPSULE.DR PO SCH (20:32)
[2023-08-11] MEDS: DULoxetine HCL 60 MG CAPSULE.DR PO SCH ×2 (08:12→20:26)
--- NOTE | 2023-08-11 12:16 | P.PN ---
Progress Note - Text Progress Note Date: 08/11/23 Interval History: Patient was seen in group and was directable and agreeable to speak with fiction and nonfiction writer prose in the office. Patient was playing cards with patient's earlier. Patient states she is feeling very anxious interacting on the unit with everyone. She claims her anxiety and mood are both terrible, and she feels that she is not improving since she has been here. She is endorsing paranoia stating that all the employees and patients are talking about her. She claims she thinks people think she is here because she does not want to work. Patient is not attending many groups. At this time patient denies any homicidal ideations, intent or plan. She is stating that she is having suicidal thoughts at this time. Patient states that she is hearing auditory hallucinations when she sleeps, denies visual hallucinations and endorsing paranoia or delusions. Patient denies any side effects from the medications and has been compliant with meds. We spoke about medication changes and patient was agreeable to it. She states that mainly when she isolates in her room she starts having suicidal thoughts. Mental status exam: General Appearance: Patient appears to be thin, improving appearance, stated age is alert, directable, and cooperative. Improving mildly Behavior: No agitated behavior. Patient is calm and directable times to cooperate poor eye contact. Speech: Patient's speech is fluent and nonpressured. [place] Mood/Affect: Mood is "terrible", affect is congruent and constricted. Not tearful today appears anxious. Suicidality/Homicidality: Patient denies having any homicidal ideation intent or plan. He is admitting to suicidal thoughts at this time, no intent or plan. Perceptions: Patient denies any auditory or visual hallucinations. Though content/process: There is no evidence of any delusional thought content and thought process is linear and goal-directed. Focused on her symptoms, concrete and evasive Memory and concentration: AOX3, grossly intact for the purposes of this session Judgment and insight: Poor, improving mildly IMPRESSIONS: bipolar disorder, with psychotic features nicotine dependance cannabis use disorder, severe dependance benzodiazepine abuse PLAN: -Patient is admitted under voluntary status to MHU for stabilization of psychiatric symptoms and safety. Patient has signed adult voluntary form and medication consent and is placed in patient's chart. -Medications : increase Seroquel 200mg qhs for mood stabilization/psychosis, trazodone 50mg qhs PRN for sleep,Dieterich 300mg daily for mood stabilization/depression, increased Cymbalta 60mg daily, 60mg qhs for mood/anxiety add visteral scheduled 25mg at 9am and 1400 for anxiety -Ativan and Haldol PRN for agitation/aggression -NRT - nicotine patch -SW on board for discharge planning. Encourage patient to participate in groups to work on coping skills.
[2023-08-11] MEDS: hydrOXYzine pamoate 25 MG CAP PO SCH (13:40)
[2023-08-11] MEDS: QUEtiapine 200 MG TAB PO SCH (20:26)
[2023-08-12] MEDS: MAGNESIUM HYDROXIDE 2,400 MG/30 ML CUP PO PRN (06:00)
--- NOTE | 2023-08-12 11:30 | P.PN ---
Progress Note - Text Progress Note Date: 08/12/23 Interval History: Patient was seen in group and was directable and agreeable to speak with typewriter repairer in the office. Patient states she feels like she is doing better today, stating she is feeling less paranoia. Patient is now attending groups, and interacting with peers on the unit. Patient claims she is not sleeping that great at night. Patient wrote a list, stating that some of her paranoia stems from being under observation. Truss Maker spoke at length with patient about mental illness and mental health, and the importance of compliance with therapy and medication. Patient is eating well. Claims that she is still struggling with some anxiety during the day, she needed to take an Ativan last night due to her inability to maintain sleep. We spoke about the importance of medications and discussed side effects and her diagnosis. At this time patient denies any homicidal or suicidal ideati ons, intent or plan. Patient is not endorsing auditory hallucinations today, denies visual hallucinations and endorsing paranoia or delusions. Patient denies any side effects from the medications and has been compliant with meds. We spoke about medication changes and patient was agreeable to it. Mental status exam: General Appearance: Patient appears to be thin, improving appearance, stated age is alert, directable, and cooperative. Improving mildly Behavior: No agitated behavior. Patient is calm and directable attempts to cooperate improved eye contact. Speech: Patient's speech is fluent and nonpressured. mildly improving Mood/Affect: Mood is "improving", affect is congruent and constricted. Suicidality/Homicidality: Patient denies having any homicidal ideation intent or plan. She is denying suicidal thoughts at this time, no intent or plan. Perceptions: Patient denies any auditory or visual hallucinations. Though content/process: There is no evidence of any delusional thought content and thought process is linear and goal-directed. Focused on her symptoms, mildly improving Memory and concentration: AOX3, grossly intact for the purposes of this session Judgment and insight: Poor, improving mildly IMPRESSIONS: bipolar disorder, with psychotic features nicotine dependance cannabis use disorder, severe dependance benzodiazepine abuse PLAN: -Patient is admitted under voluntary status to MHU for stabilization of psychiatric symptoms and safety. Patient has signed adult voluntary form and medication consent and is placed in patient's chart. -Medications : Seroquel 200mg qhs for mood stabilization/psychosis, increase trazodone 100mg qhs scheduled for sleep, Belle 300mg daily for mood stabilization/depression, Cymbalta 60mg daily, 60mg qhs for mood/anxiety, increase visteral scheduled 50mg at 9am and 1400 for anxiety -Ativan and Haldol PRN for agitation/aggression -NRT - nicotine patch -SW on board for discharge planning. Encourage patient to participate in groups to work on coping skills. Likely discharge Friday if patient continues to improve.
[2023-08-12] MEDS: hydrOXYzine pamoate 25 MG CAP PO SCH (14:21)
[2023-08-12] MEDS: traZODone HCL 100 MG TAB PO SCH (20:49)
[2023-08-13] MEDS: LORazepam 0.5 MG TAB PO PRN (03:47)
--- NOTE | 2023-08-13 11:53 | P.PN ---
Progress Note - Text Progress Note Date: 08/13/23 Interval History: Patient was seen in group and was directable and agreeable to speak with typewriter assembly and parts inspector in the office. Patient states she is feeling a difference in her anxiety level. That her anxiety is going down, it is still there at times, but she is able to interact with peers. Patient is requesting that the ativan gets discontinued, due to her past abuse of medication. Patient stated she woke last night around 4am, and had trouble falling back asleep, requested trazodone be increased. Con tinues to state that she does have anxiety during the day, however does state that it is improving significantly, she is okay with continuing on with the Vistaril. Patient is eating well. At this time patient denies any homicidal or suicidal ideations, intent or plan. Patient is not endorsing auditory hallucinations today, denies visual hallucinations and endorsing paranoia or delusions. Patient denies any side effects from the medications and has been compliant with meds. Patient is practicing coping skills. We spoke about medication changes and patient was agreeable to it. Mental status exam: General Appearance: Patient appears to be thin, improving appearance, stated age is alert, directable, and cooperative. Improving mildly Behavior: No agitated behavior. Patient is calm and directable attempts to cooperate improved eye contact. Speech: Patient's speech is fluent and nonpressured. mildly improving Mood/Affect: Mood is "improving", affect is congruent and constricted. Impro ving mildly Suicidality/Homicidality: Patient denies having any homicidal ideation intent or plan. She is denying suicidal thoughts at this time, no intent or plan. Perceptions: Patient denies any auditory or visual hallucinations. Though content/process: There is no evidence of any delusional thought content and thought process is linear and goal-directed. Focused on her symptoms, mildly improving Memory and concentration: AOX3, grossly intact for the purposes of this session Judgment and insight: improving mildly IMPRESSIONS: bipolar disorder, with psychotic features nicotine dependance cannabis use disorder, severe dependance benzodiazepine abuse PLAN: -Patient is admitted under voluntary status to [facility] for stabilization of psychiatric symptoms and safety. Patient has signed adult voluntary form and medication consent and is placed in patient's chart. -Medications : Seroquel 200mg qhs for mood stabilization/psychosis, increase trazodone 150mg qhs scheduled for sleep, Fabens 300mg daily for mood stabilization/depression, Cymbalta 60mg daily, 60mg qhs for mood/anxiety,visteral scheduled 50mg at 9am and 1400 for anxiety, add Visteral 50mg q8hour PRN for anxiety -Will check lithium level Friday morning prior to discharge. -discontinue Ativan -NRT - nicotine patch -SW on board for discharge planning. Encourage patient to participate in groups to work on coping skills. Likely discharge Friday if patient continues to improve. Fabens level prior to discharge Friday.
[2023-08-13] MEDS: LORazepam 2 MG/ML INJ IM PRN (14:41)
[2023-08-13] MEDS: ZIPRASIDONE 20 MG VIAL IM STA (14:51)
[2023-08-13] MEDS: traZODone HCL 50 MG TAB PO SCH (20:50)
[2023-08-14] MEDS: hydrOXYzine pamoate 25 MG CAP PO PRN (04:07)
[2023-08-14] MEDS: LITHIUM CARBONATE 150 MG CAP PO STA (08:36)
[2023-08-14] MEDS: LITHIUM CARBONATE 150 MG CAP PO SCH (08:44)
--- NOTE | 2023-08-14 09:08 | P.PN ---
Progress Note - Text Progress Note Date: 08/14/23 Interval History: Patient was seen in her room, and was directable and agreeable to speak with marilee veras at the bedside. Patient states she does not know why she did what she did yesterday. There was an event where the patient tried to hang herself with the curtain in her room. Patient was given Geodon as needed and Ativan and moved to a room with a roommate and closer to the nurses station for closer monitoring. Patient unsuccessful, as the curtains are installed to break away from the win vinnie with any pressure on them. Patient stated that she is feeling sad, and that if she were to go home, she would kill herself. Patient did have a visit from her mom yesterday after the incident. She stated that she was going to tell her mom not to come, but did not. States they talked about home and such. She states that life at home is stressful, however, she does not want to move out, because it would hurt her parents feelings. At this time patient denies any homicidal or suicidal ideations, intent or plan. Patient is not endorsing auditory hallucinations today, denies visual hallucinations and endorsing paranoia or delusions. Patient denies any side effects from the medications and has been compliant with meds. Patient is practicing coping skills. We spoke about medication changes and patient was agreeable to it. Mental status exam: General Appearance: Patient appears to be thin, improving appearance, stated age is alert, directable, and cooperative. Improving mildly Behavior: No agitated behavior. Patient is calm and directable attempts to cooperate improved eye contact. Speech: Patient's speech is fluent and nonpressured. mildly improving Mood/Affect: Mood is sad, affect is congruent and constricted. Suicidality/Homicidality: Patient denies having any homicidal ideation intent or plan. She is denying any current suicidal thoughts at this time, no intent or plan. Perceptions: Patient denies any auditory or visual hallucinations. Though content/process: There is no evidence of any delusional thought content and thought process is linear and goal-directed. Focused on her symptoms. Memory and concentration: AOX3, grossly intact for the purposes of this session Judgment and insight: impulsive. IMPRESSIONS: bipolar disorder, with psychotic features nicotine dependance cannabis use disorder, severe dependance benzodiazepine abuse PLAN: -Patient is admitted under voluntary status to [facility] for stabilization of psychiatric symptoms and safety. Patient has signed adult voluntary form and medication consent and is placed in patient's chart. Patient requested Ativan be discontinued, because of her prior abuse of benzos -Medications : increase Seroquel 300mg qhs for mood stabilization/psychosis, consider adding daytime dose if patient continues to struggle with impulsivity and severe anxiety/mood instability. Decrease trazodone 50mg qhs scheduled for sleep, increase Adel 450mg daily for mood stabilization/depression, Cymbalta 60mg daily, 60mg qhs for mood/anxiety, visteral scheduled 50mg at 9am and 1400 for anxiety, Visteral 50mg q8hour PRN for anxiety -Will check lithium level Friday morning prior to discharge. -discontinue Ativan -NRT - nicotine patch -SW on board for discharge planning. Encourage patient to participate in groups to work on coping skills. Likely discharge next week if patient improves. Check lithium level Friday.
[2023-08-14] MEDS: traZODone HCL 50 MG TAB PO SCH (20:30)
[2023-08-14] MEDS: QUEtiapine 100 MG TAB PO SCH (20:32)
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
--- NOTE | 2023-08-17 18:52 | P.PN ---
Progress Note - Text Progress Note Date: 08/16/23 Interval history: Patient was seen isolating to her room, sitting her bed journaling, and was directable and agreeable to speak with senior writer. She reports high anxiety still but is feeling more comfortable with going to the dining room to eat. She reports she has eaten all 3 meals in the dining room today. After our meeting yesterday she was feeling overwhelmed and signed a 3-day letter of intent to discharge. Today, she states she feels better about staying in the hospital to stabilize over the weekend. She continues to worry and ruminate on concerns, but states she is also starting to feel more confident and work through some of her anxiety. At this time, patient denies any suicidal or homicidal ideation, intent or plan. Denies any auditory or visual hallucinations. She reports her hand is shaking but also states she is feeling anxious. She will take a PRN Hydroxyzine for anxiety. Mental status exam: General Appearance: Patient appears to be stated age is alert, directable, and cooperative. Behavior: No agitated behavior. Patient is anxious, tends to isolate to her room. Speech: Patient's speech is fluent and non-pressured. Mood/Affect: Mood is anxious but also improving mildly, affect is congruent and constricted. Suicidality/Homicidality: Patient denies having any suicidal or homicidal ideation intent or plan. Perceptions: Patient denies any auditory or visual hallucinations. Though content/process: There is no evidence of any delusional thought content and thought process is ruminative with racing thoughts. Memory and concentration: AOX3, grossly intact for the purposes of this session Judgment and insight: improving mildly Assessment/Plan: Major depressive disorder, recurrent, severe Generalized anxiety disorder with panic attacks Social anxiety disorder Cannabis use disorder, moderate Benzodiazepine use disorder, mild Borderline personality disorder Patient continues to meet criteria for inpatient psychiatric admission for symptom stabilization and safety. Patient will be maintained on current psychotropic medication regimen. Monitor for medication compliance and for any psychotropic medication side effects. Will continue to monitor ongoing response to treatment. Encouraged participation in milieu. Recommend DBT therapy.
--- NOTE | 2023-08-17 19:14 | P.PN ---
Progress Note - Text Progress Note Date: 08/17/23 Interval history: Patient was seen napping in her room this afternoon, and was agreeable to speak on awakening. She continues to report feeling anxious, however she has been more and more comfortable with going to the dining room to eat her meals. She ate both breakfast and lunch so far today. She has been journaling, which she states helps her organize her thoughts. She has been talking to her friends and family on the phone and appears more hopeful but still concerned about feeling overwhelmed when she returns home. At this time, patient denies any suicidal or homicidal ideation, intent or plan. Denies any auditory or visual hallucinations. She denies shaking or tremors today. She is hopeful for discharge tomorrow. Mental status exam: General Appearance: Patient appears to be stated age, slender female, good hygiene and grooming. Behavior: No agitated behavior. Patient is anxious, attending meals in the dining room, still mostly keep to herself, does not like large groups Speech: Patient's speech is fluent and non-pressured. Mood/Affect: Mood is anxious but also improving mildly, affect is congruent and constricted. Suicidality/Homicidality: Patient denies having any suicidal or homicidal ideation intent or plan. Perceptions: Patient denies any auditory or visual hallucinations. Though content/process: There is no evidence of any delusional thought content and thought process is ruminative with racing thoughts. Memory and concentration: AOX3, grossly intact for the purposes of this session Judgment and insight: improving mildly Assessment/Plan: Major depressive disorder, recurrent, severe Generalized anxiety disorder with panic attacks Social anxiety disorder Cannabis use disorder, moderate Benzodiazepine use disorder, mild Borderline personality disorder Patient continues to meet criteria for inpatient psychiatric admission for symptom stabilization and safety. Increase scheduled Hydroxyzine to 50 mg TID for anxiety. Monitor for medication compliance and for any psychotropic medication side effects. Will continue to monitor ongoing response to treatment. Encouraged participation in milieu. Recommend DBT therapy.
[2023-08-17] MEDS: hydrOXYzine pamoate 25 MG CAP PO SCH (20:36)
[2023-08-18] MEDS: QUEtiapine 25 MG TAB PO SCH (08:01)
[2023-08-18] MEDS ORDERED: QUEtiapine 25 MG TAB PO SCH (09:00)
--- NOTE | 2023-08-18 20:38 | P.PN ---
Progress Note - Text Progress Note Date: 08/18/23 Interval history: Patient was seen napping in her room this afternoon, and was agreeable to speak on awakening. She continues to report feeling anxious, however she reports some benefit in the increase in Seroquel dose. She has been eating meals and journaling to help with anxiety. At this time, patient denies any suicidal or homicidal ideation, intent or plan. Denies any auditory or visual hallucinations. She denies shaking or tremors today. She is hopeful for discharge tomorrow. Mental status exam: General Appearance: Patient appears to be stated age, slender female, good hygiene and grooming. Behavior: No agitated behavior. Patient is anxious, attending meals in the dining room, still mostly keep to herself, does not like large groups Speech: Patient's speech is fluent and non-pressured. Mood/Affect: Mood is anxious but also improving mildly, affect is euthymic and smiling. Suicidality/Homicidality: Patient denies having any suicidal or homicidal ideation intent or plan. Perceptions: Patient denies any auditory or visual hallucinations. Though content/process: There is no evidence of any delusional thought content and thought process is ruminative with racing thoughts. Memory and concentration: AOX3, grossly intact for the purposes of this session Judgment and insight: improving mildly Assessment/Plan: Major depressive disorder, recurrent, severe Generalized anxiety disorder with panic attacks Social anxiety disorder Cannabis use disorder, moderate Benzodiazepine use disorder, mild Borderline personality disorder Patient continues to meet criteria for inpatient psychiatric admission for symptom stabilization and safety. Continue medications as currently prescribed. Monitor for medication compliance and for any psychotropic medication side effects. Will continue to monitor ongoing response to treatment. Encouraged participation in milieu. Recommend DBT therapy. Consider discharge tomorrow if continues to stabilize.
[2023-08-19 10:58] VITALS: BMI 18.6
[2023-08-19] MEDS: PROPRANOLOL 20 MG TAB PO SCH (11:34)
[2023-08-19] MEDS: QUEtiapine 25 MG TAB PO STA (11:34)
--- NOTE | 2023-08-19 12:47 | P.PN ---
Progress Note - Text Progress Note Date: 08/19/23 Interval History: Patient was seen in her room, and was directable and agreeable to speak with marilee veras in the office. Patient states that she is angry, and required a PRN dose of Haldol this morning. Patient states she is angry at herself, and would not elaborate as to why. She states that she needs to go home at stay at her house locked in her room for the rest of her life. States that no one likes her. Patient is tearful. Trim Master Operator explained to the patient about safe discharge, and financial underwriter does not feel comfortable being able to safely discharge patient today. Patient states that she feels "nothing is going to fix this" "the medications are not working". Patient was fairly evasive during the interview, appeared to be agitated and very anxious, continues to be fairly impulsive. She continues to state that she is not sleeping well. She claims that "Nothing will help this". At this time patient denies any homicidal or suicidal ideations, intent or plan. Patient is not endorsing auditory hallucinations today, denies visual hallucinations and endorsing paranoia or delusions. Patient denies any side effects from the medications and has been compliant with meds. Mental status exam: General Appearance: Patient appears to be thin, disheveled appearance and hair, stated age is alert, directable, and cooperative. Improving mildly Behavior: No agitated behavior. Patient is upset today, no eye contact, tearful. Speech: Patient's speech is fluent and nonpressured, Mood/Affect: Mood is sad, affect is congruent and constricted. Suicidality/Homicidality: Patient denies having any homicidal ideation intent or plan. She is denying any current suicidal thoughts at this time, no intent or plan. Perceptions: Patient denies any auditory or visual hallucinations. Though content/process: There is no evidence of any delusional thought content and thought process is linear and goal-directed. Focused on her symptoms. Evasive. Memory and concentration: AOX3, grossly intact for the purposes of this session Judgment and insight: impulsive. Poor insight/judgment IMPRESSIONS: bipolar disorder, with psychotic features Cluster B personality disorder nicotine dependance cannabis use disorder, severe dependance benzodiazepine abuse PLAN: -Patient is admitted under voluntary status to [facility] for stabilization of psychiatric symptoms and safety. Patient has signed adult voluntary form and medication consent and is placed in patient's chart. Patient requested Ativan be discontinued, because of her prior abuse of benzos -Medications : increase Seroquel 400mg qhs for mood stabilization/psychosis, Seroquel 50mg daily , discontinue trazodone , added propranolol 20mg daily for increased heart rate, [place] 450mg daily for mood stabilization/depression, Cymbalta 60mg daily, 60mg qhs for mood/anxiety, visteral scheduled 50mg at 9am and 1400 for anxiety, Visteral 50mg q8hour PRN for anxiety -NRT - nicotine patch -SW on board for discharge planning. Encourage patient to participate in groups to work on coping skills. Likely discharge in 2-3 days if patient is improving
[2023-08-19] MEDS: QUEtiapine 400 MG TAB PO SCH (20:17)
[2023-08-20 07:39] VITALS: TEMP 97.7
[2023-08-20] MEDS: QUEtiapine 50 MG TAB PO SCH (08:16)
[2023-08-20 08:23] VITALS: BP 110/70; PULSE 94; RESP 20
--- NOTE | 2023-08-20 11:59 | P.DS ---
Providers Date of admission: 08/07/23 15:25 Expected date of discharge: 08/20/23 Attending physician: Jesse Yo MD Consults: 08/07/23 15:26 Consult Physician Routine Consulting Provider: Lani Mcclain Consult Reason/Comments: H and P Do you want consulting provider notified?: Yes Primary care physician: Jayson Freed - Discharge Diagnosis(es) (1) Bipolar disorder with psychotic features Current Visit: Yes Status: Acute Priority: High (2) Nicotine dependence Current Visit: Yes Status: Acute Priority: Medium (3) Cannabis use disorder, severe, dependence Current Visit: Yes Status: Acute Priority: High (4) Benzodiazepine abuse Current Visit: Yes Status: Acute Priority: Medium (5) Borderline personality disorder Current Visit: Yes Status: Acute Priority: High Hospital Course: Admission HPI: Admission note was completed by auto service writer "Patient presented to the hospital on 08/06. As per EPS note, "presenting with SI w plan to OD,cut wrists. Cl shawn in via Mother due to recent manic episode and currently experiencing severe depression. Cl's symptom report is relative to Bi-polar type I. Cl reports depression/anxiety last 12 months and hx of manic symptoms previously, and at noted points during the last 12 months. Cl reports depression last 14 days and feels like "life is derailing" Cl acknowledges planning out suicide. " I don't want to do these things in my heart but my head keeps telling me to." Cl presents tearful, overwhelmed, anxious, racing thoughts, hypersexuality, excess spending, euphoric mood initially, mood lability, panic attacks, flight of ideas, intense anger, and endorsing aud/vis myesha along w paranoia. Cl states " I feel like everyone is talking about me or watching me. I thought I head people outside of my house laughing at me and crying" Cl is fearful of what is happening and emotionally distraught. Cl reports not feeling supported by their family, and minimized. Cl reports using alcohol to cope and that it has become more frequent as well as THC." Upon todays assessment, patient endorses severe paranoia, thinking every single person hates her, is out to get her, and her family, and that everyone wants to see her kill her self. She has spent over 10k recently, she states that she has been on the internet trying to find a boyfriend. States she's "kind of hung up on a boy, and it's stupid". Patient endorses racing thoughts. She states her mood right now is just "kind of numb". States her therapist stated that she should come in and get help. She states she has no appetite, and her sleep is not good. Patient denies any suicidal or homicidal ideations intent or plan, here, however, at home, she was thinking of taking pills and slitting her wrists. At this time patient endorses auditory and visual hallucinations. She thought the whole town was on fire, and she hears random laughing and crying outside. She is endorsing paranoia, thinking everyone on the unit hates her, and "obviously everyone on the outside". Patient admits to using marijuana, in oil form. Patient admits to abusing xanax in the past. Patient vapes nicotine. Has done mushrooms once." Hospital course: Upon admission to the unit patient was directable and agreeable to commence treatment and signed adult voluntary form. Patient was initially fairly isolativ e, paranoid and very anxious however with time and treatment she eventually got along well with other patients on the unit and followed unit protocol. Patient was compliant with the medications and denied any side effects throughout hospital course. Patient was started on Seroquel increased to dose of 400 mg nightly for mood stabilization/psychosis, 50 mg of Seroquel during the day, propranolol 20 mg daily for increased heart rate/anxiety agitation, lithium 450 mg daily for mood stabilization/suicidal thoughts, Cymbalta 60 mg twice daily for mood/anxiety, Vistaril 50 mg scheduled 3 times daily for anxiety.. Patient spoke of her stressors and engaged in therapy both group and individual. Patient was also seen by medical team for history and physical exam. Throughout the course of the hospitalization patient gradually improved with regards to mood, anxiety, suicidal thoughts, impulsive control, paranoia, sleep and returned back to their baseline level of functioning. On the day of discharge patient denied any suicidal or homicidal ideations intent or plan denied any auditory or visual hallucinations. Patient endorsed wanting to live for her health and her family. The patient denied any access to guns or weapons. Patient denied any paranoia and did not endorse any delusions. Patient does have a significant history of substance abuse and was counseled on abstaining from all substances including alcohol and marijuana. Patient elected to do outpatient substance use treatment program through her outpatient provider. Patient was also counseled on the medications and need for regular compliance and was encouraged to follow-up with their outpatient appointment for mental health and also for primary care. Prior to discharge a family meeting will be arranged by vp digital marketing social media and crm to answer any questions and ensure safety upon discharge. Compliance Director also had a family meeting over the phone with patient's mother Adia at [phone]. We discussed diagnosis, prognosis, treatments medications and also safety at home. Spoke with mother in detail about the safety risk of having guns weapons knives in the home. She claims that the guns and ammunition are locked in a safe. She did states that she has a locked box for her medications and will only give her 1 day supply. Mental status exam: General Appearance: Patient appears to be thin, wearing glasses, stated age is alert, pleasant, and cooperative. Patient is in no acute distress and has improved hygiene and grooming Behavior: Patient is calmly seated without any agitated behavior. Speech: Patient's speech is fluent and nonpressured. Mood/Affect: Patient reports their mood is "better", affect is congruent Suicidality/Homicidality: Patient denies having any suicidal or homicidal ideation intent or plan. Perceptions: Patient denies any auditory or visual hallucinations. Though content/process: There is no evidence of any delusional thought content and thought process is linear and goal-directed. Memory and concentration: AOX3, grossly intact for the purposes of this session. Can spell "WORLD" backwards correctly. Judgment and insight: Chronically poor/impulsive, however has improved with guarded prognosis Impression: bipolar disorder, with psychotic features Borderline personality disorder nicotine dependance cannabis use disorder, severe dependance benzodiazepine abuse Plan: -Continue with discharge today as patient has improved and stabilized psychiatrically and is not currently an imminent threat to herself and/or others. Patient will remain at chronically elevated risk for harm to self and/or others due to her impulsivity. -Continue medications: Seroquel 400 mg nightly for mood stabilization/psychosis with daily dose of 50 mg of Seroquel. Propranolol 20 mg daily for increased hea rt rate/anxiety and agitation, lithium 450 mg daily for mood stabilization/depression, Cymbalta 60 mg twice daily for mood/anxiety, Vistaril 50 mg 3 times daily scheduled for anxiety. -Patient was counseled on the need for medication compliance and appropriate follow-up at mental health and also primary care for medical issues. Patient verbalized understanding and agreed. -Social work to arrange for and conduct family meeting to ensure safety upon discharge and answer any questions/concerns. Compliance Director also had a family meeting with patient's mother over the phone as noted above. social work also to arrange for patients follow up appointments with [facility] for psychiatric care along with follow up with primary care provider. patient also will be referred [facility] -Patient counseled on abstaining from recreational drugs and marijuana and alcohol. Was informed/educated on the adverse effects on their physical and mental health. Patient verbally agreed and understood. -Patient was instructed to return to the hospital or seek immediate medical care if their psychiatric or medical symptoms do worsen or reoccur. Allergies Allergy/AdvReac Type Severity Reaction Status Date / Time No Known Allergies Allergy Verified 08/07/23 18:04 Laboratory Results WBC 4.3 k/uL (3.8-10.6) 08/07/23 10:07 RBC 4.49 m/uL (3.80-5.40) 08/07/23 10:07 Hgb 14.1 gm/dL (11.4-16.0) 08/07/23 10:07 Hct 42.3 % (34.0-46.0) 08/07/23 10:07 MCV 94.3 fL (80.0-100.0) 08/07/23 10:07 MCH 31.5 pg (25.0-35.0) 08/07/23 10:07 MCHC 33.4 g/dL (31.0-37.0) 08/07/23 10:07 RDW 12.5 % (11.5-15.5) 08/07/23 10:07 Plt Count 201 k/uL (150-450) 08/07/23 10:07 MPV 8.3 08/07/23 10:07 Neutrophils % 67 % 08/07/23 10:07 Lymphocytes % 22 % 08/07/23 10:07 Monocytes % 8 % 08/07/23 10:07 Eosinophils % 1 % 08/07/23 10:07 Basophils % 0 % 08/07/23 10:07 Neutrophils # 2.9 k/uL (1.3-7.7) 08/07/23 10:07 Lymphocytes # 1.0 k/uL (1.0-4.8) 08/07/23 10:07 Monocytes # 0.4 k/uL (0-1.0) 08/07/23 10:07 Eosinophils # 0.0 k/uL (0-0.7) 08/07/23 10:07 Basophils # 0.0 k/uL (0-0.2) 08/07/23 10:07 Sodium 140 mmol/L (137-145) 08/07/23 10:07 Potassium 3.4 mmol/L (3.5-5.1) L 08/07/23 10:07 Chloride 105 mmol/L (98-107) 08/07/23 10:07 Carbon Dioxide 19 mmol/L (22-30) L 08/07/23 10:07 Anion Gap 16 mmol/L 08/07/23 10:07 BUN 10 mg/dL (7-17) 08/07/23 10:07 Creatinine 0.72 mg/dL (0.52-1.04) 08/07/23 10:07 Est GFR (CKD-EPI)AfAm >90 (>60 ml/min/1.73 sqM) 08/07/23 10:07 Est GFR (CKD-EPI)NonAf >90 (>60 ml/min/1.73 sqM) 08/07/23 10:07 Glucose 85 mg/dL (74-99) 08/07/23 10:[address] Glu mg/dL 97 mg/dL 08/07/23 10:07 Hemoglobin A1c 5.0 % (<=6.0) 08/07/23 10:07 Calcium 9.6 mg/dL (8.4-10.2) 08/07/23 10:07 Total Bilirubin 1.2 mg/dL (0.2-1.3) 08/07/23 10:07 AST 20 U/L (14-36) 08/07/23 10:07 ALT 11 U/L (4-34) 08/07/23 10:07 Alkaline Phosphatase 64 U/L (38-126) 08/07/23 10:07 Total Protein 7.6 g/dL (6.3-8.2) 08/07/23 10:07 Albumin 4.8 g/dL (3.5-5.0) 08/07/23 10:07 Triglycerides 72.70 mg/dL (0.00-149.00) 08/07/23 10:07 Cholesterol 219.00 mg/dL (0.00-200.00) H 08/07/23 10:07 LDL Cholesterol, Calc 142.8 mg/dL (0.0-131.0) H 08/07/23 10:07 VLDL Cholesterol, Calc 14.54 mg/dL (5.00-40.00) 08/07/23 10:07 HDL Cholesterol 61.70 mg/dL (40.00-60.00) H 08/07/23 10:07 Cholesterol/HDL Ratio 3.55 Ratio 08/07/23 10:07 TSH 1.150 mIU/L (0.465-4.680) 08/07/23 10:07 Urine HCG, Qual Not Detected (Not Detectd) 08/06/23 22:47 Urine Opiates Screen Not Detected (NotDetected) 08/06/23 22:47 Ur Oxycodone Screen Not Detected (NotDetected) 08/06/23 22:47 Urine Methadone Screen Not Detected (NotDetected) 08/06/23 22:47 Ur Barbiturates Screen Not Detected (NotDetected) 08/06/23 22:47 U Tricyclic Antidepress Not Detected (NotDetected) 08/06/23 22:47 Ur Phencyclidine Scrn Not Detected (NotDetected) 08/06/23 22:47 Ur Amphetamines Screen Not Detected (NotDetected) 08/06/23 22:47 U Methamphetamines Scrn Not Detected (NotDetected) 08/06/23 22:47 U Benzodiazepines Scrn Not Detected (NotDetected) 08/06/23 22:47 [place] 0.2 mmol/L 08/18/23 07:31 Urine Cocaine Screen Not Detected (NotDetected) 08/06/23 22:47 U Marijuana (THC) Screen Detected (NotDetected) H 08/06/23 22:47 SARS-CoV-2 (PCR) Not Detected (Not Detectd) 08/06/23 22:30 Vital Signs Temp 97.7 F 08/20/23 06:56 Pulse 94 08/20/23 08:18 Resp 20 08/20/23 08:18 BP 110/70 08/20/23 08:18 Pulse Ox 98 08/20/23 06:56 FiO2 Intake & Output 08/19/23 08/20/23 08/20/23 18:59 06:59 18:59 Weight 46.2 kg Patient Condition at Discharge: Stable Plan - Discharge Summary Discharge Rx Participant: No New Discharge Prescriptions: New DULoxetine HCL [Cymbalta] 60 mg PO HS 30 Days #30 cap DULoxetine HCL [Cymbalta] 60 mg PO DAILY 30 Days #30 cap Ibuprofen [Motrin] 600 mg PO Q6HR PRN tab PRN Reason: Moderate Pain (Scale 4 To 6) Nicotine Gum (Polacrilex) [Nicorette] 2 mg BUCCAL Q4HR PRN 30 Days #180 pieceofgum PRN Reason: Nicotine Cravings QUEtiapine [SEROquel] 400 mg PO HS 30 Days #30 tab hydrOXYzine pamoate [Vistaril] 50 mg PO TID 30 Days #180 cap Propranolol [Inderal] 20 mg PO DAILY 30 Days #30 tab [place] Carbonate 450 mg PO DAILY 30 Days #90 cap QUEtiapine [SEROquel] 50 mg PO DAILY 30 Days #30 tab Discontinued DULoxetine HCL [Cymbalta] 30 mg PO DAILY ALPRAZolam [Xanax] 0.5 mg PO DAILY PRN PRN Reason: Anxiety Discharge Medication List DULoxetine HCL [Cymbalta] 60 mg PO DAILY 30 Days #30 cap 08/20/23 [Rx] DULoxetine HCL [Cymbalta] 60 mg PO HS 30 Days #30 cap 08/20/23 [Rx] Ibuprofen [Motrin] 600 mg PO Q6HR PRN tab 08/20/23 [Rx] [place] Carbonate 450 mg PO DAILY 30 Days #90 cap 08/20/23 [Rx] Nicotine Gum (Polacrilex) [Nicorette] 2 mg BUCCAL Q4HR PRN 30 Days #180 pieceofgum 08/20/23 [Rx] Propranolol [Inderal] 20 mg PO DAILY 30 Days #30 tab 08/20/23 [Rx] QUEtiapine [SEROquel] 50 mg PO DAILY 30 Days #30 tab 08/20/23 [Rx] QUEtiapine [SEROquel] 400 mg PO HS 30 Days #30 tab 08/20/23 [Rx] hydrOXYzine pamoate [Vistaril] 50 mg PO TID 30 Days #180 cap 08/20/23 [Rx] Follow up Appointment(s)/Referral(s): [facility] - 09/01/23 10:00 am ([facility] will text client for sooner appt. and get her in week of 08/17-08/21) Jayson Freed, [Primary Care Provider] - 1-2 days Patient Instructions/Handouts: Depression (DC), Generalized Anxiety Disorder (GEN), Cannabis Abuse (DC) Activity/Diet/Wound Care/Special Instructions: Avoid the use of street drugs and alcohol. Take all medications as prescribed. When you are in need of refills on your medications, please contact your medical provider and/or outpatient psychiatrist/provider to have this done. Please go to your scheduled outpatient appointment for aftercare treatment. If symptoms return or become worse, call the crisis line at and/or go to the nearest emergency room for evaluation. National Suicide Hotline 008. Discharge/Stand Alone Forms: AA Meetings [facility] [facility] Discharge Disposition: HOME SELF-CARE
== END 2023-08-20 13:16 | disposition home or self-care (01) | DRG 885 ==
LOC: EC 20:58 → 3MHU 08-07 15:25
PROVIDERS: ADMIT Psychiatry & Neurology Psychiatry; ATTEND Psychiatry & Neurology Psychiatry
DX: F31.89 Other bipolar disorder (principal); R45.851 Suicidal ideations; F12.20 Cannabis dependence, uncomplicated; F13.10 Sedative, hypnotic or anxiolytic abuse, uncomplicated; F17.290 Nicotine dependence, other tobacco product, uncomplicated; F40.10 Social phobia, unspecified; F41.0 Panic disorder [episodic paroxysmal anxiety]; F41.1 Generalized anxiety disorder; F60.3 Borderline personality disorder; F60.89 Other specific personality disorders; R63.6 Underweight; Z79.899 Other long term (current) drug therapy; Z28.310 Unvaccinated for COVID-19; Z88.7 Allergy status to serum and vaccine; Z11.52 Encounter for screening for COVID-19; Z71.51 Drug abuse counseling and surveillance of drug abuser; Z71.89 Other specified counseling
CPT/HCPCS: 36415; 80053; 80061; 80178; 80306; 81025; 82075; 83036; 84443; 85025; 87635; 99285